=== PATIENT | female | born 1950 | race Caucasian/White ===

== ENCOUNTER → 2017-10-16 11:21 | Outpatient (CLI) | payer OTHER, SELFPAY ==
[2017-10-16 14:35] LABS: AST(SGOT) 16 U/L (15-37); Alanine Aminotransfer ALT/SGPT 19 U/L (13-56); Anion Gap 10 (5-15); BUN 17 mg/dL (7-18); BUN/Creat Ratio 22.5 RATIO (10-20); Calcium,Total 9.1 mg/dL (8.5-10.1); Chloride 105 mmol/L (98-107); Cholesterol 137 mg/dL (200); Creatinine, Serum 0.76 mg/dL (0.55-1.02); EST Glomerular Filtration Rate 81 mL/min (>60); Est Glom Filt Rate - Afr Amer 98 mL/min (>60); Glucose 95 mg/dL (74-106); High Density Lipoprotein 46 mg/dL; Potassium 4.1 mmol/L (3.5-5.1); Sodium Level 141 mmol/L (136-145); T4 Total, Thyroxin 13.9 ug/dL (4.8-13.9); Thyroid Stim Hormone (TSH) 0.87 uIU/mL (0.358-3.74); Triglycerides 121 mg/dL; Very Low Density Lipoprotein 24 mg/dL (5-40)
== END ==
PROVIDERS: Family Provider Family Medicine; PCP Family Medicine; Visit Provider Family Medicine
DX: I10 Essential (primary) hypertension (principal); E03.9 Hypothyroidism, unspecified; E78.5 Hyperlipidemia, unspecified
CPT/HCPCS: 36415; 80048; 80061; 84436; 84443; 84450; 84460

== ENCOUNTER → 2018-12-03 | Outpatient (CLI) | payer OTHER, SELFPAY ==
[2018-12-03 13:16] LABS: AST(SGOT) 19 U/L (15-37); Alanine Aminotransfer ALT/SGPT 26 U/L (13-56); Cholesterol 141 mg/dL (200); High Density Lipoprotein 51 mg/dL; T4 Total, Thyroxin 11.3 ug/dL (4.8-13.9); Thyroid Stim Hormone (TSH) 0.88 uIU/mL (0.358-3.74); Triglycerides 138 mg/dL; Very Low Density Lipoprotein 28 mg/dL (5-40)
== END | disposition home or self-care (01) ==
LOC: MFPLAB 10:21
PROVIDERS: Family Provider Family Medicine; PCP Family Medicine; Referring Provider Family Medicine; Visit Provider Family Medicine
DX: E03.9 Hypothyroidism, unspecified (principal); E78.00 Pure hypercholesterolemia, unspecified
CPT/HCPCS: 36415; 80061; 84436; 84443; 84450; 84460

== ENCOUNTER → 2019-03-11 | Outpatient (CLI) | payer OTHER, SELFPAY ==
[2019-03-11 14:37] LABS: Vitamin D,25 Hydroxy 25.1 ng/mL (29.95-100.01)
== END | disposition home or self-care (01) ==
LOC: MFPLAB 11:17
PROVIDERS: Family Provider Family Medicine; PCP Family Medicine; Referring Provider Family Medicine; Visit Provider Family Medicine
DX: M85.80 Other specified disorders of bone density and structure, unspecified site (principal)
CPT/HCPCS: 36415; 82306

== ENCOUNTER → 2019-05-10 | Outpatient (CLI) | payer MEDICARE, SELFPAY ==
--- NOTE | 2019-05-10 11:51 | RAD_ITS ---
HISTORY: bilat hip pain ADDITIONAL HISTORY: None provided. COMPARISON: None TECHNIQUE: AP pelvis Number of images including paperwork: 1 FINDINGS: BONES: No acute fracture. JOINTS: No subluxation. Mild degenerative changes of the hips. Degenerative changes of the visualized spine. SOFT TISSUES: No distinct foreign body. RAD/Pelvis 1 or 2 Views IMPRESSION: Degenerative changes without acute osseous abnormality. at 0105 Reported and signed by: Temi Elam MD Electronically Signed: Temi Elam MD at 1:05 EST Tel , Service support ,
[2019-05-10 14:45] LABS: AST(SGOT) 15 U/L (15-37); Alanine Aminotransfer ALT/SGPT 23 U/L (13-56); Alkaline Phosphatase 100 U/L (45-117); Anion Gap 5 (5-15); BUN 15 mg/dL (7-18); BUN/Creat Ratio 18.2 RATIO (10-20); Calcium,Total 9.5 mg/dL (8.5-10.1); Chloride 106 mmol/L (98-107); Creatinine, Serum 0.82 mg/dL (0.55-1.02); EST Glomerular Filtration Rate 73 mL/min (>60); Est Glom Filt Rate - Afr Amer 88 mL/min (>60); Globulin 4.1 g/dL (2.2-4.2); Glucose 91 mg/dL (74-106); Potassium 3.8 mmol/L (3.5-5.1); Protein, Total 8.1 g/dL (6.4-8.2); Sodium Level 139 mmol/L (136-145)
[2019-05-10 15:01] LABS: Vitamin D,25 Hydroxy 27.5 ng/mL (29.95-100.01)
== END | disposition home or self-care (01) ==
PROVIDERS: Family Provider Family Medicine; PCP Family Medicine; Referring Provider Family Medicine; Visit Provider Family Medicine
DX: M85.80 Other specified disorders of bone density and structure, unspecified site (principal); E55.9 Vitamin D deficiency, unspecified; M25.551 Pain in right hip; M25.552 Pain in left hip
CPT/HCPCS: 36415; 72170; 80053; 82306

== ENCOUNTER → 2019-06-03 11:18 | Outpatient (CLI) | payer MEDICARE, SELFPAY ==
[2019-06-03 14:38] LABS: Anion Gap 2 (5-15); BUN 16 mg/dL (7-18); BUN/Creat Ratio 19.7 RATIO (10-20); Chloride 108 mmol/L (98-107); Creatinine, Serum 0.81 mg/dL (0.55-1.02); EST Glomerular Filtration Rate 74 mL/min (>60); Est Glom Filt Rate - Afr Amer 90 mL/min (>60); Glucose 91 mg/dL (74-106); Potassium 4.1 mmol/L (3.5-5.1); Sodium Level 138 mmol/L (136-145)
== END ==
PROVIDERS: Family Provider Family Medicine; PCP Family Medicine; Referring Provider Family Medicine; Visit Provider Family Medicine
DX: I10 Essential (primary) hypertension (principal)
CPT/HCPCS: 36415; 80048

== ENCOUNTER 2019-06-20 10:30 | Outpatient (RCR) | payer MEDICARE, SELFPAY ==
--- NOTE | 2019-05-18 11:04 | HP.PTEVAL_ITS ---
Patient's Visit Information LANI REID is a 69 year old F referred to Physical Therapy by Lydia Shea MD with a diagnosis of Bilateral Hip Pain. Date of Evaluation: 05/18/19 Physical Therapist: Stephanie Charles DPT - Visit Plan Frequency: 2x /Week Duration: 4 Weeks Plan: 2x a week for 2 weeks aquatic then progression to land based therapy. Focus on LE and core home exercise program as patient is going to [place] in a month. - Subjective Findings: Patient reports thats she has been having a lot of problems from the hip down to the knee. They are both the same. She has been having trouble for years- has tried new matress, tylenol arthritis. She lays on her side and it wakes her up at night. The pain starts in the middle of the back and radiated to the outside of the knee. This summer she started having problems with steps as their laundry is downstairs. Had a bone denisty and she now has osteopenia. Went and saw PCP who increased vitamin D and sent her to PT. If she takes Tylenol she is able to basically all of her ADL's. Took x-rays which showed OA in her hips. Worst: 6/10 Agg: going up/down stairs. Eases: taking medication. When she sits for awhile then gets up its worse. Describes the pain as dull and achy mostly. Does have N/T in her thigh they go numb this is not a new injury. Has seen a chiro for a long time. 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 Sleep: not disturbed since she saw the chiropractor. Is not going to the chiropractor anymore. PMHx/Meds: no changes - Objective Posture: FH, RS, increased kyphosis- can correct but does not maintain. Gait: no deviation noted- good eugene, arm swing and trunk rotation. HR/TR: able equal bilaterally. SLS: WS but unable to SLS. ROM: Lumbar: all motions diminished by 25% but reports no pain. Pain with IR/ER testing of the left hip but does have full ROM. Sensation: diminished per pt reports to the left LE gross touch. Reflex: 2+ normal. Strength: Ankle: 5/5, Knee: 4+/5, Hip: 4/5 throughout Core: fair minus. Flex: HS: severe, Gastroc: moderate, Piriformis: severe. Special Test: dural signs positive on the left, SLR positive on the left, THANG: positive bilaterally, Slump: positive bilaterally. LLD: negative, Pelvic Alignment: WFL. Palpation: tender along great troch and into the gluts bilaterally- soreness reported down ITBand bilaterally. Stairs: recip with 2 HR and significanty UE A - Goals Goal 1:: Patient will be I with HEP and progression Goal Time Frame: 4-6 Weeks Goal 2:: Patient will maintain proper posture t/o tx session to demo increased core s/s Goal Time Frame: 4-6 Weeks Goal 3:: Patient will asc/desc 8 stairs recip with 1 HR and no pain Goal Time Frame: 4-6 Weeks - Rehabilitation Potential Physical Therapy Diagnosis: Patient presents with hypomobility. She has decreased ROM, strength, flex and muscular endurance leading to poor posture and increased pain with ADL's. Rehabilitation Potential: Fair - Anticipated Interventions Patient/Client Instruction: Educate patient on: Benefits of Fitness Program Therapeutic Exercise to Include: Strength training, Endurance training, Balance training, Coordination, Agility training, Body mechanics, Postural training, Flexibilty training, In an aquatic setting, Dynamic Lumbar Stabilization, Scapular Strength/Stabilization For the Purpose of:: To improve muscle performance and motor function Thank you for the opportunity to evaluate your patient. For Medicare and Medicare HMO plans, please review the plan of care and approve it. It will need to be FAXED BACK to us at [phone] for Medicare purposes. For Medicare only, by signing this I certify the plan of care. Please let me know if there are questions or concerns regarding this plan of care. Physician Signature: Date:
--- NOTE | 2019-06-20 10:53 | HP.PTDCSUM ---
HP - PT D/C Summary It has been my pleasure to treat LANI REID under orders from Lydia Shea MD, for the diagnosis of Bilateral Hip Pain for a total of 8 visit(s). Discharge Date: Please see the following information for a summary of their discharge status. - Subjective Subjective: Patient report that she is better- she is sleeping better and doing steps better- but she still gets stiff when she sits but its not as bad. She leaves for [place] on and plans to continue her exercises there. Has not had to take pain meds during the day but does at night. Does not stop her from doing anything - Pain RLE Pain Intensity (Out of 10): 0 LLE Pain Intensity (Out of 10): 0 Lumbar Spine Pain Intensity (Out of 10): 0 - Overall Improvement % Improvement: 50 - Objective Objective/Function: Posture: does maintain in sitting hard back chair Gait: no deviation noted- good eugene, arm swing and trunk rotation. HR/TR: able equal bilaterally. SLS: 4 min each ROM: Lumbar: all motions diminished by 25% but reports no pain. Reflex: 2+ normal. Strength: Ankle: 5/5, Knee: 5/5, Hip: 4+/5 throughout Core: fair plus. Flex: HS: moderate, Gastroc: moderate, Piriformis: moderate. Special Test: dural signs positive on the left, SLR positive on the left, THANG: positive bilaterally, Slump: positive bilaterally. LLD: negative, Pelvic Alignment: WFL. Palpation: tender along great troch and into the gluts bilaterally- soreness reported down ITBand bilaterally right>left . Stairs: recip with 1 HR - Goals Goal 1:: Patient will be I with HEP and progression Goal Progress: Goal Met Goal 2:: Patient will maintain proper posture t/o tx session to demo increased core s/s Goal Progress: Goal Met Goal 3:: Patient will asc/desc 8 stairs recip with 1 HR and no pain Goal Progress: Progressing - Plan Plan: Discharge to I HEP - D/C Information If there are questions or concerns regarding this patient's physical therapy, please feel free to call me at [phone]. Thank you for the referral of this patient. Sincerely, Stephanie Charles DPT
== END 2019-06-20 19:00 | disposition home or self-care (01) ==
LOC: PT 10:30
PROVIDERS: Family Provider Family Medicine; PCP Family Medicine; Referring Provider Family Medicine; Visit Provider Family Medicine
DX: M16.0 Bilateral primary osteoarthritis of hip (principal)
CPT/HCPCS: 97110; 97113; 97162; 97164

== ENCOUNTER → 2019-12-23 | Outpatient (CLI) | payer MEDICARE, SELFPAY ==
[2019-12-23 15:12] LABS: Vitamin D,25 Hydroxy 53.7 ng/mL
[2019-12-23 15:25] LABS: AST(SGOT) 17 U/L (15-37); Alanine Aminotransfer ALT/SGPT 29 U/L (13-56); Anion Gap 5 (5-15); BUN 16 mg/dL (7-18); BUN/Creat Ratio 20.8 RATIO (10-20); Calcium,Total 9.3 mg/dL (8.5-10.1); Chloride 106 mmol/L (98-107); Cholesterol 149 mg/dL (200); Creatinine, Serum 0.77 mg/dL (0.55-1.02); EST Glomerular Filtration Rate 79 mL/min (>60); Est Glom Filt Rate - Afr Amer 96 mL/min (>60); Glucose 90 mg/dL (74-106); High Density Lipoprotein 52 mg/dL; Potassium 4.3 mmol/L (3.5-5.1); Sodium Level 139 mmol/L (136-145); Thyroid Stim Hormone (TSH) 1.17 uIU/mL (0.358-3.74); Triglycerides 169 mg/dL; Very Low Density Lipoprotein 34 mg/dL (5-40)
== END | disposition home or self-care (01) ==
LOC: MFPLAB 11:24
PROVIDERS: PCP Family Medicine; Visit Provider Family Medicine
DX: E55.9 Vitamin D deficiency, unspecified (principal); I10 Essential (primary) hypertension; E03.9 Hypothyroidism, unspecified; E78.00 Pure hypercholesterolemia, unspecified
CPT/HCPCS: 36415; 80048; 80061; 82306; 84436; 84443; 84450; 84460

== ENCOUNTER → 2020-02-29 07:42 | Outpatient (CLI) | payer MEDICARE, SELFPAY ==
--- NOTE | 2020-02-29 07:44 | CT_ITS ---
STUDY: LOW DOSE CT LUNG CANCER SCREENING REASON FOR EXAM: Female, 69 years old. TOBACCO USE, 1PPD X 40 YRS RADIATION DOSAGE (If Supplied By Facility): CTDIvol = ( 2.01 ) mGy, DLP = ( 61.68 ) mGycm TECHNIQUE: No contrast was administered. Low dose technique was utilized (average mAS-38 and kVp 120). 1.25 mm axial source images with a slice interval of 1.25-mm were reconstructed in lung windows. 2.5 mm axial source images with a slice interval of 2.5-mm were reconstructed in lung windows. 5.0 mm axial source images with a slice interval of 5.0-mm were reconstructed in soft tissue windows. Nodule measured using lung windows on PACS and/or independent workstation with automated measurement of minimum and maximum diameter. Nodule measurement reported as average diameter rounded to the nearest whole number. Growth is defined as an increase ins size of greater than 1.5 mm. COMPARISON: None. NODULES: Calcified granulomas are seen in the left perihilar and left upper lobe. Calcified granulomas are also seen in the lingular segment of the left upper lobe. Endobronchial lesion: None Aorta: Atherosclerotic plaque of the aortic arch. Coronary arteries: Coronary artery calcification. Heart: Unremarkable Pulmonary artery: Unremarkable Mediastinal nodes: Small mediastinal lymph nodes. Other chest and abdominal findings: CT/Low Dose CT Lung Screening IMPRESSION: Lung-RADS category 2 - Continue annual screening with LDCT in 12 months. IMPORTANT NOTES FOR USE: ACR Lung-RADS Version 1.0 Assessment Categories Release Date: October 24, 2013 Category: Coded 0-4 bases on nodule(s) with highest degree of suspicion. Negative screen is defined as categories 1 and 2; a positive screen is defined as categories 3 and 4. Category 3 and 4A nodules that are unchanged on interval CT should be coded as category 2, and individuals returned to screening in 12 months. Category 4X: Category 3 or 4 nodules with additional imaging findings that increase the suspicion of lung cancer, such as spiculation, GGN that doubles in size in 1 year, enlarged lymph notes, etc. Category Modifiers: S (significant finding unrelated to lung cancer) and C (prior history of treated lung cancer) may be added to the 0-4 Lung-RADS Electronically Signed: Leo Cook, at 10:38 EDT , Service support ,
== END ==
PROVIDERS: PCP Family Medicine; Referring Provider Family Medicine; Visit Provider Family Medicine
DX: F17.210 Nicotine dependence, cigarettes, uncomplicated (principal)
CPT/HCPCS: G0297

== ENCOUNTER → 2020-11-20 11:45 | Outpatient (CLI) | payer MEDICARE, SELFPAY ==
[2020-11-20 16:15] LABS: Absolute Lymphocyte Count 2.62 X10^3/uL (0.83-4.51); Absolute Neutrophil Count 5.7 X10^3/uL (2.0-7.7); Basophil# 0.05 X10^3/uL; Basophil% 0.5 % (0-1); Eosinophil# 0.16 X10^3/uL; Eosinophils% 1.7 % (0-5); Hematocrit 47.3 % (37-47); Hemoglobin 15.6 g/dL (12.0-15.0); Lymphocyte # 2.62 X10^3/ul (0.83-4.51); Lymphocyte % 28.3 % (19-41); Mean Corpuscular Hgb 31.3 pg (27.0-32.0); Mean Platelet Vol. 9.8 fl (6.2-12.0); Monocyte# 0.65 X10^3/uL; NRBC Flagged by Analyzer 0 % (0-5); Neutrophil # 5.74 X10^3/uL (2.7-7.7); Neutrophil % 62.2 % (47-70); Platelet Count 316 K/mm3 (150-450); RBC Distribution Width CV 12.8 % (11.6-14.6); RBC Distribution Width SD 44.6 fl (35.1-43.9); Red Blood Count 4.98 M/mm3 (4.2-5.4); White Blood Count 9.3 K/mm3 (4.4-11.0)
[2020-11-20 16:20] LABS: ALB/GLOB Ratio 0.9 RATIO (0.9-2.4); AST(SGOT) 19 U/L (15-37); Alanine Aminotransfer ALT/SGPT 22 U/L (13-56); Albumin, Serum 3.8 g/dL (3.2-5.0); Alkaline Phosphatase 83 U/L (45-117); Anion Gap 5 (5-15); BUN 12 mg/dL (7-18); BUN/Creat Ratio 13.2 RATIO (10-20); Calcium,Total 9.7 mg/dL (8.5-10.1); Chloride 106 mmol/L (98-107); Creatinine, Serum 0.91 mg/dL (0.55-1.02); EST Glomerular Filtration Rate 65 mL/min (>60); Est Glom Filt Rate - Afr Amer 78 mL/min (>60); Globulin 4.1 g/dL (2.2-4.2); Glucose 94 mg/dL (74-106); Potassium 3.8 mmol/L (3.5-5.1); Protein, Total 7.9 g/dL (6.4-8.2); Sodium Level 140 mmol/L (136-145)
== END ==
PROVIDERS: PCP Family Medicine; Referring Provider Family Medicine; Visit Provider Family Medicine
DX: Z01.818 Encounter for other preprocedural examination (principal)
CPT/HCPCS: 36415; 80053; 85025

== ENCOUNTER → 2021-01-07 15:29 | Outpatient (CLI) | payer MEDICARE, SELFPAY ==
[2021-01-07 18:32] LABS: AST(SGOT) 21 U/L (15-37); Alanine Aminotransfer ALT/SGPT 30 U/L (13-56); Anion Gap 6 (5-15); BUN 16 mg/dL (7-18); BUN/Creat Ratio 20.5 RATIO (10-20); Calcium,Total 9.5 mg/dL (8.5-10.1); Chloride 105 mmol/L (98-107); Cholesterol 156 mg/dL (200); Creatinine, Serum 0.78 mg/dL (0.55-1.02); EST Glomerular Filtration Rate 78 mL/min (>60); Est Glom Filt Rate - Afr Amer 94 mL/min (>60); Glucose 94 mg/dL (74-106); High Density Lipoprotein 50 mg/dL; Potassium 4.2 mmol/L (3.5-5.1); Sodium Level 139 mmol/L (136-145); T4 Total, Thyroxin 11.9 ug/dL (4.8-13.9); Thyroid Stim Hormone (TSH) 0.71 uIU/mL (0.358-3.74); Triglycerides 197 mg/dL; Very Low Density Lipoprotein 39 mg/dL (5-40)
== END ==
PROVIDERS: PCP Family Medicine; Referring Provider Family Medicine; Visit Provider Family Medicine
DX: E78.00 Pure hypercholesterolemia, unspecified (principal); E03.9 Hypothyroidism, unspecified; I10 Essential (primary) hypertension
CPT/HCPCS: 36415; 80048; 80061; 84436; 84443; 84450; 84460

== ENCOUNTER → 2022-01-10 | Outpatient (CLI) | payer MEDICARE, SELFPAY ==
[2022-01-10 15:26] LABS: Vitamin D,25 Hydroxy 55.9 ng/mL
[2022-01-10 15:38] LABS: AST(SGOT) 22 U/L (15-37); Alanine Aminotransfer ALT/SGPT 27 U/L (13-56); Anion Gap 6 (5-15); BUN 15 mg/dL (7-18); BUN/Creat Ratio 18.1 RATIO (10-20); Calcium,Total 9.8 mg/dL (8.5-10.1); Chloride 105 mmol/L (98-107); Cholesterol 142 mg/dL (200); Creatinine, Serum 0.83 mg/dL (0.55-1.02); EST Glomerular Filtration Rate 72 mL/min (>60); Est Glom Filt Rate - Afr Amer 87 mL/min (>60); Glucose 91 mg/dL (74-106); High Density Lipoprotein 58 mg/dL; Potassium 4.3 mmol/L (3.5-5.1); Sodium Level 140 mmol/L (136-145); T4 Total, Thyroxin 14.6 ug/dL (4.8-13.9); Thyroid Stim Hormone (TSH) 0.24 uIU/mL (0.358-3.74); Triglycerides 166 mg/dL; Very Low Density Lipoprotein 33 mg/dL (5-40)
[2022-01-10 19:22] LABS: Microalbumin,Random Urine < 5.0 mg/L (NO RANGE EST.)
== END | disposition home or self-care (01) ==
LOC: MFPLAB 12:11
PROVIDERS: PCP Family Medicine; Referring Provider Family Medicine; Visit Provider Family Medicine
DX: E78.00 Pure hypercholesterolemia, unspecified (principal); I10 Essential (primary) hypertension; E03.9 Hypothyroidism, unspecified; E55.9 Vitamin D deficiency, unspecified
CPT/HCPCS: 36415; 80048; 80061; 82043; 82306; 82570; 84436; 84443; 84450; 84460

== ENCOUNTER → 2022-01-27 | Outpatient (CLI) | payer MEDICARE, SELFPAY ==
--- NOTE | 2022-01-27 13:31 | CT_ITS ---
EXAM: CT CHEST, LUNG CANCER SCREENING WITHOUT INTRAVENOUS CONTRAST CLINICAL INDICATION: TOBACCO USE DISORDER TECHNIQUE: Helically acquired images were obtained of the chest without intravenous contrast using low dose (LDCT) lung cancer screening protocol. This CT exam was performed using one or more of the following dose reduction techniques: automated exposure control, adjustment of the mA and/or kV according to patient size, and/or use of iterative reconstruction technique. This report was created using [employer] report generation technology. COMPARISON: CT Lung Cancer Screening dated 02/29/2020 FINDINGS: LUNGS AND PLEURAL SPACES: Multiple calcified granulomata are again noted within the left upper lobe. No evidence of lung mass or suspicious nodule. Diffuse pulmonary emphysema. No pleural effusion or thickening. No pneumothorax. HEART: Normal. Heart size is normal. No pericardial effusion. No significant coronary artery calcifications. MEDIASTINUM: Normal. No mediastinal or hilar adenopathy. Esophagus is unremarkable. No hiatal hernia. THYROID: Normal. No thyroid lesions. BONES/JOINTS: Normal. No suspicious lytic or blastic abnormality. VASCULATURE: Normal. Thoracic aorta is non-dilated. LYMPH NODES: Normal. No enlarged lymph nodes. TUBES, LINES AND DEVICES: Interval placement of intraspinal stimulator wire. CT/Low Dose CT Lung Screening IMPRESSION: 1. No evidence of a lung mass or suspicious pulmonary nodule. 2. Stable calcified granulomata within the left upper lobe. 3. Stable pulmonary emphysema. 4. ACR Lung CT Screening Reporting T Data System (Lung-RADS) score: 1 - Recommend continued annual screening with low-dose CT (LDCT) in 12 months. Electronically Signed: Dean Chavarria MD at 10:59 EDT ,
== END | disposition home or self-care (01) ==
LOC: CT 13:27
PROVIDERS: PCP Family Medicine; Referring Provider Family Medicine; Visit Provider Family Medicine
DX: Z87.891 Personal history of nicotine dependence (principal)
CPT/HCPCS: 71271

== ENCOUNTER → 2022-07-16 | Outpatient (CLI) | payer MEDICARE, SELFPAY ==
--- NOTE | 2022-07-16 14:24 | NEURO ---
NCS and/or EMG Patient Report Ordering Doctor: Lydia Shea DATE OF SERVICE: 07/16/22 Alondra presents for electrodiagnostic testing of the upper limbs. She reports numbness and tingling in both hands. Electrodiagnostic Findings: Median motor nerve demonstrates normal distal latency and amplitude bilaterally with mild reduction in conduction velocities. Ulnar motor response is normal on the right side. Left ulnar motor nerve demonstrates approximately 20% drop in conduction across the elbow. Normal median and ulnar F waves. Prolonged median sensory latency at the right wrist. Normal ulnar and radial sensory responses. On needle EMG, all muscles tested in the upper limbs showed no evidence of denervation with normal motor unit action potentials. Electrodiagnostic impression: This is an abnormal study in the upper limbs 1. Electrodiagnostic findings suggestive of right-sided median mononeuropathy. This is consistent with a mild right carpal tunnel syndrome. No electrodiagnostic evidence is noted for left carpal tunnel syndrome 2. Electrodiagnostic findings demonstrate left-sided ulnar neuropathy, consistent with a mild left cubital tunnel syndrome.
== END | disposition home or self-care (01) ==
PROVIDERS: PCP Family Medicine; Referring Provider Orthopaedic Surgery; Visit Provider Family Medicine
DX: G56.03 Carpal tunnel syndrome, bilateral upper limbs (principal)
CPT/HCPCS: 95886; 95913

== ENCOUNTER → 2023-01-19 | Outpatient (CLI) | payer MEDICARE, SELFPAY ==
[2023-01-19 13:12] LABS: Microalbumin,Random Urine < 5.0 mg/L (NO RANGE EST.)
[2023-01-19 14:06] LABS: AST(SGOT) 16 U/L (15-37); Alanine Aminotransfer ALT/SGPT 23 U/L (13-56); Anion Gap 4 (5-15); BUN 13 mg/dL (7-18); BUN/Creat Ratio 16.9 RATIO (10-20); Calcium,Total 9.2 mg/dL (8.5-10.1); Chloride 107 mmol/L (98-107); Cholesterol 128 mg/dL (200); Creatinine, Serum 0.77 mg/dL (0.55-1.02); EST Glomerular Filtration Rate 78 mL/min (>60); Est Glom Filt Rate - Afr Amer 95 mL/min (>60); Glucose 88 mg/dL (74-106); High Density Lipoprotein 64 mg/dL; Sodium Level 140 mmol/L (136-145); Thyroid Stim Hormone (TSH) 1.16 uIU/mL (0.358-3.74); Triglycerides 114 mg/dL; Very Low Density Lipoprotein 23 mg/dL (5-40)
== END | disposition home or self-care (01) ==
LOC: MFPLAB 11:10
PROVIDERS: PCP Family Medicine; Visit Provider Family Medicine
DX: E78.00 Pure hypercholesterolemia, unspecified (principal); I10 Essential (primary) hypertension; E03.9 Hypothyroidism, unspecified
CPT/HCPCS: 36415; 80048; 80061; 82043; 82570; 84436; 84443; 84450; 84460

== ENCOUNTER → 2023-07-28 | Outpatient (CLI) | payer MEDICARE, SELFPAY ==
[2023-07-28 12:44] LABS: Microalbumin,Random Urine < 5.0 mg/L (NO RANGE EST.)
[2023-07-28 12:58] LABS: AST(SGOT) 19 U/L (15-37); Alanine Aminotransfer ALT/SGPT 27 U/L (13-56); Anion Gap 2 (5-15); BUN 19 mg/dL (7-18); BUN/Creat Ratio 28.8 RATIO (10-20); Calcium,Total 9.3 mg/dL (8.5-10.1); Chloride 105 mmol/L (98-107); Cholesterol 160 mg/dL (200); Creatinine, Serum 0.66 mg/dL (0.55-1.02); EST Glomerular Filtration Rate 93 mL/min (>60); Est Glom Filt Rate - Afr Amer 113 mL/min (>60); Glucose 90 mg/dL (74-106); High Density Lipoprotein 66 mg/dL; Potassium 4.1 mmol/L (3.5-5.1); Sodium Level 135 mmol/L (136-145); Thyroid Stim Hormone (TSH) 1.32 uIU/mL (0.358-3.74); Triglycerides 176 mg/dL; Very Low Density Lipoprotein 35 mg/dL (5-40)
== END | disposition home or self-care (01) ==
LOC: MTLAB 11:18
PROVIDERS: PCP Family Medicine; Referring Provider Family Medicine; Visit Provider Family Medicine
DX: I10 Essential (primary) hypertension (principal); E03.9 Hypothyroidism, unspecified; E78.00 Pure hypercholesterolemia, unspecified
CPT/HCPCS: 36415; 80048; 80061; 82043; 82570; 84436; 84443; 84450; 84460

== ENCOUNTER → 2024-02-05 | Outpatient (CLI) | payer MEDICARE, SELFPAY ==
[2024-02-05 15:37] LABS: Thyroid Stim Hormone (TSH) 1.27 uIU/mL (0.358-3.74)
== END | disposition home or self-care (01) ==
LOC: MFPLAB 11:49
PROVIDERS: PCP Family Medicine; Visit Provider Family Medicine
DX: E03.9 Hypothyroidism, unspecified (principal)
CPT/HCPCS: 36415; 84443

== ENCOUNTER → 2024-08-19 | Outpatient (CLI) | payer MEDICARE, SELFPAY ==
[2024-08-19 18:23] LABS: Protein, Urine (Random) < 6.0 mg/dL (<11.9)
[2024-08-19 18:43] LABS: AST(SGOT) 17 U/L (15-37); Alanine Aminotransfer ALT/SGPT 21 U/L (13-56); Anion Gap 6 (5-15); BUN 17 mg/dL (7-18); Calcium,Total 9.7 mg/dL (8.5-10.1); Chloride 107 mmol/L (98-107); Cholesterol 148 mg/dL (200); Creatinine, Serum 0.68 mg/dL (0.55-1.02); EST Glomerular Filtration Rate 90 mL/min (>60); Est Glom Filt Rate - Afr Amer 109 mL/min (>60); Glucose 95 mg/dL (74-106); High Density Lipoprotein 67 mg/dL; Sodium Level 139 mmol/L (136-145); T4 Total, Thyroxin 10.3 ug/dL (4.8-13.9); Triglycerides 156 mg/dL; Very Low Density Lipoprotein 31 mg/dL (5-40)
== END | disposition home or self-care (01) ==
LOC: MFPLAB 14:20
PROVIDERS: PCP Family Medicine; Referring Provider Family Medicine; Visit Provider Family Medicine
DX: E03.9 Hypothyroidism, unspecified (principal); E78.00 Pure hypercholesterolemia, unspecified; I10 Essential (primary) hypertension
CPT/HCPCS: 36415; 80048; 80061; 82570; 84156; 84436; 84443; 84450; 84460